=== PATIENT | female | born 1985 | race Caucasian/White ===

== ENCOUNTER 2017-02-23 11:49 | Emergency (ER) | payer BC ==
[2017-02-23 12:02] VITALS: BP 139/100
--- NOTE | 2017-02-23 12:08 | ERNOTE ---
Back Pain ER HPI Date of Service: 02/23/17 Presenting Symptoms: injury/pain to back Time Seen by Provider: 02/23/17 12:07 Source: patient, RN notes reviewed Exam Limitations: no limitations Immunizations: IMMUNIZATION HX Immunizations Up to Date Yes History of Influenza Vaccine No Hx Pneumococcal Vaccination No Allergies/Adverse Reactions: Allergies codeine Allergy (Intermediate, Verified 02/23/17 12:02) Vomiting loratadine [From Claritin] Allergy (Intermediate, Verified 02/23/17 12:02) Hives Home Medications: HOME MEDICATIONS Calcium Carbonate [Calcium] 500 mg PO DAILY 12/14/13 [Last Taken 03/14/14] Cetirizine HCl [Zyrtec] 10 mg PO DAILY 12/14/13 [Last Taken 03/14/14] Ferrous Sulfate [Iron] 325 mg PO DAILY 12/14/13 [Last Taken 03/14/14] Cefdinir [Omnicef] 300 mg PO Q12H 02/23/17 [Last Taken Unknown] Narrative: 31 y/o female ambulatory to the ED for low back pain that began approximately 8 months ago, but has been worse over the past few days. She began having more pain while bending down to get clothes out of the dryer. When this has acted up over the past few months, she has been able to get it under control with ibuprofen and a muscle relaxant. This is currently not helping. She has also had good results with chiropractic treatment, but did not have any improvement after an adjustment a few days ago. Her pain is in her lower sacral region and radiates out into her buttocks. Date (Duration): 02/18/17 Quality/Severity: Reports: severe, aching, dullness Location of pain: Reports: lower back Recent Injury?: Reports: possibly Possible Precipitating Factor: Reports: turning/bending Modifying Factors - (Improves): Reports: upright position Modifying Factors - (Worsens): Reports: movement flexion Associated Symptoms: Denies: fever/chills, sweating, constipation/incontinence, nausea/vomiting, problems urinating, difficulty walking, numbess/weakness in legs Prior Treament: Reports: similar symptoms before. Denies: recently seen Review of Systems - Review of Systems Constitutional: Absent: recent illness, fever, chills EYE: Present: no symptoms reported ENT: Present: no symptoms reported Respiratory: Absent: shortness of breath, cough Cardiology: Absent: chest pain, syncope Gastrointestinal/Abdominal: Absent: nausea, vomiting, abdominal pain Genitourinary: Absent: dysuria, hematuria Skin: Absent: rash, lesions, lumps Neurological: Absent: headache, dizziness/light-headedness, weakness, numbness, tingling Endocrine: Present: no symptoms reported Hematologic/Lymphatic: Present: no symptoms reported Psych: Present: no symptoms reported - Patient's Past Medical History Patient History - Medical: Anemia, Migraines Patient History - Cardiac/Respiratory: No pertinent hx Patient History - Cancer: No Hx of Cancer Patient History - Surgical Procedures: Appendectomy, Colonoscopy, Orthopedic Patient History - Other: None LMP (Calendar): 02/04/17 - Social History Living Situations: spouse Psych History: No pertinent hx Smoking Status: Never smoker Alcohol Use: occasionally Drug Use: none - Immunizations Immunizations Up to Date: Yes Hx Pneumococcal Vaccination: No History of Influenza Vaccine: No Physical Exam - Physical Exam General Appearance: Present: wd/wn, alert, other - Appears uncomfortable, unable to sit Respiratory: Present: no respiratory distress, no accessory muscle use Cardiovascular/Chest: Present: normal peripheral pulses Back Exam: Present: no CVA tenderness, vertebral tenderness - sacral region, decreased range of motion - low back Extremity Exam: Present: normal inspection, normal range of motion, no edema Neurological Exam: Present: alert, oriented, normal mood/affect, no motor/ sensory deficits Skin Exam: Present: normal color, warm/dry ED Progress - Results and Orders Patient's Lab Results:: I have reviewed the patient's lab results. - Vital Signs Patient's Vital Signs:: I have reviewed the patient's vital signs. Vital Signs: Vital Signs 02/23/17 11:57 Temperature 37.2 C Pulse Rate 95 Respiratory 16 Rate Blood Pressure 139/100 O2 Sat by Pulse 96 Oximetry - X-Ray X-Ray #1 X-Ray: lumbosacral Interpretation: Reviewed by me X-ray Comments: Technique: AP, lateral, bilateral oblique, and lumbosacral spot view obtained. Comparison: None. Findings: There is minimal disc space narrowing L5-S1. Other disc spaces appear adequately maintained. Alignment appears within normal limits. No fractures identified. IMPRESSION: MILD LUMBAR SPONDYLOSIS L5-S1. Electronically signed by Demetris John M.D.. Demetris John MD - Progress/Reassessment Chief Complaint: Back Pain Progress:: Improved Departure Clinical Impression: Spondylosis, lumbosacral Qualifiers: Spinal osteoarthritis complication: with radiculopathy Qualified Code(s): M47.27 - Other spondylosis with radiculopathy, lumbosacral region - Departure Disposition: Home Follow Up Needed Condition: Stable Instructions: Back Pain, Adult Additional Instructions: Continue ibuprofen (600 mg every 6 hours with food) and Flexeril (1/2 to 1 tablet every 8 hours as needed) Contact Dr. Calhoun to arrange follow up Referrals: Simone Calhoun MD [Primary Care Provider] -
--- OUTSIDE RECORDS SUMMARY | 2017-02-23 12:18 | XMS REPORT | Continuity of Care Document ---
:1985 Author Organization [facility] [place] [address] Care Team Providers Name Role Phone Unavailable Primary Care Provider Unavailable Source Comments This disclosure is being made pursuant to the [employer] English program and maynot contain all information available regarding this patient.[facility] Active Allergies and Adverse Reactions Allergen Noted Date Severity Reactions Comments Codeine 12/22/2016 High Hives Current Medications Be aware that medications may not be up to date as of this document. Alwaysverify current medications with the patient. Prescription Sig. Disp. Refills Start Date End Date Status benzonatate (TESSALON Take 1 capsule by 30 capsule 0 12/22/2016 Active PERLES) 100 MG capsule mouth every 6 (six) hours as needed for Cough. amoxicillin (AMOXIL) Take 1 oral q 8 20 capsule 0 12/22/2016 Active 500 MG capsule hours for 10 days Active Problems Not on file Most Recent Encounters Date Type Specialty Providers Description 12/22/2016 Office Visit Family Medicine Mary Ann Dominguez, Acute pharyngitis, [employer] unspecified etiology (Primary Dx); Subacute maxillary sinusitis Immunizations Name Dates Previously Given Next Due DTaP, 5 pertussis antigens 03/10/1989,06/29/1985,03/09/1984,01/08/1984,11/04 Hepatitis B 06/20/2005,01/22/2005,12/23/2004 IPV 03/10/1989,06/29/1985,03/09/1984,01/08/1984 MMR 01/22/2005,12/14/1984 Td, preservative free 03/28/2004 Social History Tobacco Use Types Packs/Day Years Used Date Never Assessed Last Filed Vital Signs Vital Sign Reading Time Taken Blood Pressure - - Pulse 97 12/22/2016 5:56 PM CDT Temperature 36.8 C (98.2 F) 12/22/2016 5:56 PM CDT Respiratory Rate - - Height 1.676 m (5' 6") 12/22/2016 5:56 PM CDT Weight 77.747 kg (171 lb 6.4 oz) 12/22/2016 5:56 PM CDT Body Mass Index 27.68 12/22/2016 5:56 PM CDT Oxygen Saturation 98% 12/22/2016 5:56 PM CDT Plan of Care Health Maintenance Due Date Last Done Comments Tetanus/Pertussis (6 - Tdap) 03/29/2004 03/28/2004, Additional history exists 03/10/1989, 06/29/1985 Pap Smear 2004 Influenza Immunization (#1) 2016 Results from Last 3 Months AMB POCT Rapid Strep A (12/22/2016) Component Value Range Rapid Strep A Screen Negative Negative Insurance Payer Benefit Plan / Group Subscriber ID Type Phone Address [facility] PP [id number] PPO [phone] [id number] [place] [phone] Work: [employer] [address] [phone] [id number] Home: [place] [phone]
[2017-02-23] MEDS ORDERED: DIAZEPAM 5 MG/ML SYRG IM ONE (12:19)
[2017-02-23] MEDS ORDERED: KETOROLAC TROMETHAMINE 60 MG/2 ML VIAL IM ONE ×2 (12:19→12:22)
--- OUTSIDE RECORDS SUMMARY | 2017-02-23 12:19 | XMS REPORT | Summary of Care ---
:1985 Author Organization [facility] Address [address] [place] [address] [address] [place] [address] Care Team Providers Name Role Phone Simone Calhoun Primary Care Physician Encounter Date(s): 09/26/16 - 09/26/16 [facility] [address] [place] [address] [address] [place] [address]- Discharge Diagnosis: Internal hemorrhoid Discharge Diagnosis: Iron deficiency anemia Discharge Diagnosis: Hyperplastic colon polyp Discharge Disposition: Discharged to Home or Self Care Attending Physician: GAURAV Acuña Referring Physician: Hoang Rey DO Vital Signs Most recent to oldest [Reference Range]: 1 Peripheral Pulse Rate [60-100 bpm] 72 bpm (09/26/16 8:09 AM) Blood Pressure [90-130/60-90 mmHg] 106/67mmHg (09/26/16 8:09 AM) Mean Arterial Pressure, Cuff 80 mmHg (09/26/16 8:09 AM) Most recent to oldest [Reference Range]: 1 Height/Length Measured 168.0 cm (09/26/16 8:09 AM) Weight Dosing 77.7 kg (09/26/16 8:09 AM) Weight Measured 77.7 kg (09/26/16 8:09 AM) BSA Measured 1.88 m2 (09/26/16 8:09 AM) Body Mass Index Measured 27.53 kg/m2 (09/26/16 8:09 AM) Problem List Condition Effective Dates Status Health Status Informant Anemia(Confirmed) Active Asthma(Confirmed) Active Allergies, Adverse Reactions, Alerts Substance Reaction Severity Status Claritin Hives Active codeine vomiting Active Medications albuterol 2.5 mg/3 mL (0.083%) inhalation solution 3 mL, Inhale, q6hr, PRN for wheezing, # 25 EA, 0 Refill(s), Start Date: 14:39:00 [employer]ENT[employer]IVE Start Date: 08/20/16 Status: OrderedCalcium 600+D 1 tablet, Oral, Start Date: 08/20/16 14:38:00 [employer] REPRESENTATIVE Start Date: 08/20/16 Status: Orderedcarbonyl iron 45 mg oral tablet 1 tab(s), Oral, Daily, # 30 tab(s), 0 Refill(s), Start Date: 09/26/16 8:14:00 [employer] REPRESENTATIVE Start Date: 09/26/16 Status: Orderedclindamycin 1% topical lotion 1 cristian, Topical, BID, # 60 mL, 0 Refill(s), Start Date: 08/20/16 14:39:00 [employer] REPRESENTATIVE Start Date: 08/20/16 Status: OrderedIron-150 1 tab(s), Oral, Daily, Start Date: 08/20/16 14:38:00 [employer] REPRESENTATIVE Start Date: 08/20/16 Stop Date: 09/26/16 Status: CompletedlevoFLOXacin 500 mg oral tablet 1 tab(s), Oral, Daily, # 10 tab(s), 0 Refill(s), Start Date: 08/20/16 14:39:00 [employer] REPRESENTATIVE Start Date: 08/20/16 Stop Date: 09/12/16 Status: CompletedSingulair 10 mg oral tablet 1 tab(s), Oral, qPM, 0 Refill(s), Start Date: 08/20/16 14:37:00 [employer] REPRESENTATIVE Start Date: 08/20/16 Status: OrderedSuprep Bowel Prep Kit oral liquid 1 bottles, Oral, BID, Mix 1 btl to 16oz water and drink. Next morning; repeat use second btl. Complete at least 1 hr before colonscopy., # 1 kit(s), 0 Refill (s), Start Date: 08/20/16 15:03:00 [employer] SAL[employer] REPRESENTATIVE, Pharmacy: [id number] Special Instructions: Mix 1 btl to 16oz water and drink. Next morning; repeat use second btl. Complete at least 1 hr before colonscopy. Start Date: 08/20/16 Stop Date: 09/15/16 Status: CompletedSuprep Bowel Prep Kit oral liquid 1 bottles, Oral, BID, Mix 1 btl to 16oz water and drink. Next morning; repeat use second btl. Complete at least 1 hr before colonscopy., # 1 kit(s), 0 Refill (s), Start Date: 08/27/16 9:11:00 [employer] SALES REPRESENTATIVE, Pharmacy: [facility] Special Instructions: Mix 1 btl to 16oz water and drink. Next morning; repeat use second btl. Complete at least 1 hr before colonscopy. Start Date: 08/27/16 Stop Date: 09/15/16 Status: CompletedTamiflu 1 tab, Oral, Daily, 0 Refill(s), Start Date: 09/12/16 10:38:00 [employer] SAL[employer] REPRESENTATIVE Start Date: 09/12/16 Stop Date: 09/26/16 Status: CompletedWal-Zyr 10 mg oral tablet 1 tab(s), Oral, Daily, 0 Refill(s), Start Date: 08/20/16 14:37:00 [employer] SAL[employer] REPRESENTATIVE Start Date: 08/20/16 Status: Ordered Results No data available for this section Immunizations No data available for this section Procedures Procedure Date Related Diagnosis Body Site Colonoscopy1 09/15/16 APPENDECTOMY 2000 Bunionectomy 1997 Tonsillectomy 1988 1auto-populated from documented surgical case Social History No data available for this section Assessment and Plan No data available for this section
--- OUTSIDE RECORDS SUMMARY | 2017-02-23 12:19 | XMS REPORT | Summary of Care ---
:1985 Author Organization [facility] Address [address] [place] [id number]- Care Team Providers Name Role Phone Simone Calhoun Primary Care Physician Encounter Date(s): 09/15/16 - 09/15/[address] [address]- [facility] Discharge Disposition: 01 Discharged to Home or Self Care Attending Physician: Hoang Rey DO Admitting Physician: Hoang Rey DO Vital Signs Most recent to oldest 1 2 3 [Reference Range]: Temperature Temporal Artery 36.8 DegC [36-38 DegC] (09/15/16 11:03 AM) Heart Rate Monitored [60-100 79 bpm 75 bpm 67 bpm bpm] (09/15/16 12:46 PM) (09/15/16 12:32 PM) (09/15/16 12:27 PM) Respiratory Rate [12-20 br/min] 16 br/min 18 br/min 15 br/min (09/15/16 12:46 PM) (09/15/16 12:32 PM) (09/15/16 12:27 PM) SpO2 100 % 95 % 100 % (09/15/16 12:46 PM) (09/15/16 12:32 PM) (09/15/16 12:27 PM) SpO2 Location Right hand Right hand Right hand (09/15/16 12:46 PM) (09/15/16 12:32 PM) (09/15/16 12:27 PM) Blood Pressure [90-130/60-90 119/46mmHg 113/63mmHg 108/63mmHg mmHg] (09/15/16 12:46 PM) (09/15/16 12:32 PM) (09/15/16 12:27 PM) Mean Arterial Pressure Monitor 82 mmHg 78 mmHg 78 mmHg Measure (09/15/16 12:32 PM) (09/15/16 12:27 PM) (09/15/16 12:25 PM) Most recent to oldest [Reference Range]: 1 2 3 Height/Length Measured 168 cm (09/15/16 11:03 AM) Height/Length Estimated 168 cm (09/12/16 10:29 AM) Weight Estimated 77 kg (09/12/16 10:29 AM) Weight Dosing 75.6 kg (09/15/16 11:03 AM) Weight Measured 75.6 kg (09/15/16 11:03 AM) Body Mass Index Measured 26.79 kg/m2 (09/15/16 11:03 AM) Problem List Condition Effective Dates Status Health Status Informant Anemia(Confirmed) Active Asthma(Confirmed) Active Allergies, Adverse Reactions, Alerts Substance Reaction Severity Status Claritin Hives Active codeine vomiting Active Medications albuterol 2.5 mg/3 mL (0.083%) inhalation solution 3 mL, Inhale, q6hr, PRN for wheezing, # 25 EA, 0 Refill(s), Start Date: 14:39:00 [employer] Start Date: 08/20/16 Status: OrderedCalcium 600+D 1 tablet, Oral, Start Date: 08/20/16 14:38:00 [employer] Start Date: 08/20/16 Status: Orderedclindamycin 1% topical lotion 1 cristian, Topical, BID, # 60 mL, 0 Refill(s), Start Date: 08/20/16 14:39:00 [employer] Start Date: 08/20/16 Status: OrderedIron-150 1 tab(s), Oral, Daily, Start Date: 08/20/16 14:38:00 [employer] Start Date: 08/20/16 Status: OrderedlevoFLOXacin 500 mg oral tablet 1 tab(s), Oral, Daily, # 10 tab(s), 0 Refill(s), Start Date: 08/20/16 14:39:00 [employer] Start Date: 08/20/16 Stop Date: 09/12/16 Status: CompletedSingulair 10 mg oral tablet 1 tab(s), Oral, qPM, 0 Refill(s), Start Date: 08/20/16 14:37:00 [employer] Start Date: 08/20/16 Status: OrderedSuprep Bowel Prep Kit oral liquid 1 bottles, Oral, BID, Mix 1 btl to 16oz water and drink. Next morning; repeat use second btl. Complete at least 1 hr before colonscopy., # 1 kit(s), 0 Refill (s), Start Date: 08/20/16 15:03:00 [employer]IL[employer], Pharmacy: [facility] Special Instructions: Mix 1 btl to 16oz [...] 0 Refill (s), Start Date: 08/27/16 9:11:00 [employer]IL[employer], Pharmacy: [facility] Special Instructions: Mix 1 btl to 16oz water and drink. Next morning; repeat use second btl. Complete at least 1 hr before colonscopy. Start Date: 08/27/16 Stop Date: 09/15/16 Status: CompletedTamiflu 1 tab, Oral, Daily, 0 Refill(s), Start Date: 09/12/16 10:38:00 [employer] Start Date: 09/12/16 Status: OrderedWal-Zyr 10 mg oral tablet 1 tab(s), Oral, Daily, 0 Refill(s), Start Date: 08/20/16 14:37:00 [employer] Start Date: 08/20/16 Status: Ordered Results Patient Viewable Results Most recent to oldest [Reference Range]: 1 Urine [Negative] Negative (09/15/16 10:58 AM) UA HCG, Interp. First morning urine specimen is preferred. If the result does not correlate with clinical presentation, then either immediate serum quantitative HCG test or repeat qualitative test in forty-eight hour s recommended. The test is intended as an aid in diagnosing early . *Unknown* (09/15/16 10:58 AM) Immunizations No data available for this section Procedures Procedure Date Related Diagnosis Body Site Colonoscopy1 09/15/16 APPENDECTOMY 2000 Bunionectomy 1998 Tonsillectomy 1988 1auto-populated from documented surgical case Social History No data available for this section Assessment and Plan No data available for this section
[2017-02-23] MEDS ORDERED: DIAZEPAM 5 MG/ML SYRG ONE (12:22)
== END 2017-02-23 13:38 | disposition home or self-care (01) ==
LOC: ER 11:49
DX: M47.897 Other spondylosis, lumbosacral region (principal)